=== PATIENT | male | born 1970 | race Caucasian/White ===

== ENCOUNTER 2017-10-17 01:48 | Emergency (ER) | payer MEDICAID ==
[2017-10-17 01:55] VITALS: BP 139/90
[2017-10-17] MEDS ORDERED: ACYCLOVIR 200 MG CAPSULE PO STA (02:02)
--- NOTE | 2017-10-17 02:08 | ED Physician Documentation ---
PD HPI MALE - Stated complaint Stated Complaint: MALE - Chief complaint Chief Complaint: Wound - History obtained from History obtained from: Patient - History of Present Illness Timing - onset: How many days ago (2) Timing - details: Gradual onset, Still present Associated symptoms: Genital sore / lesion. No: Testiclar pain, Scrotal swelling PD HPI MALE CONTRIB FACTORS: Sexually active Similar symptoms before: Has not had sx before Recently seen: Not recently seen - Additional information Additional information: Patient is a 47 year old male with no significant past medical history who is presenting to the emergency department for penile lesion. patient states that he noticed spots on the shaft of his penis and then whitish discharge and irritation near the glans. Review of Systems Constitutional: denies: Fever, Chills Eyes: reports: Reviewed and negative Ears: reports: Reviewed and negative Nose: reports: Reviewed and negative Throat: reports: Reviewed and negative Cardiac: reports: Reviewed and negative Respiratory: reports: Reviewed and negative : denies: Dysuria, Frequency, Hesitancy, Discharge Skin: reports: Rash, Lesions Musculoskeletal: reports: Reviewed and negative Neurologic: reports: Reviewed and negative Psychiatric: reports: Reviewed and negative Endocrine: denies: Swollen lymph nodes Immunocompromised: denies: Immunocompromised PD PAST MEDICAL HISTORY - Past Medical History Cardiovascular: Hypertension Respiratory: None Neuro: None Endocrine/Autoimmune: None GI: None : None HEENT: None Psych: None Musculoskeletal: None Derm: None - Past Surgical History Past Surgical History: Yes - Present Medications Home Medications: Ambulatory Orders Medication Instructions Recorded Confirmed Acyclovir 400 mg PO TID #21 tablet 10/17/17 Clotrimazole 1 applic TP BID #45 gm 10/17/17 - Allergies Allergies/Adverse Reactions: Allergies Allergy/AdvReac Type Severity Reaction Status Date / Time No Known Drug Allergies Allergy Verified 10/17/17 01:58 - Social History Does the pt smoke?: Yes Smoking Status: Current every day smoker Does the pt drink ETOH?: Yes Does the pt have substance abuse?: No - Immunizations Immunizations are current?: No Immunizations: TDAP >10years/unknown - POLST Patient has POLST: No PD ED PE NORMAL - Vitals Vital signs reviewed: Yes - General General: Alert and oriented X 3, No acute distress - HEENT HEENT: Atraumatic, PERRL - Cardiac Cardiac: RRR - Respiratory Respiratory: No respiratory distress - Abdomen Abdomen: Soft, Non distended - Extremities Extremities: No deformity, Normal ROM s pain - Neuro Neuro: Alert and oriented X 3, Normal speech Eye Opening: Spontaneous Motor: Obeys Commands Verbal: Oriented GCS Score: 15 - Psych Psych: Normal mood PD ED PE EXPANDED - Male Male : Skin lesions, Cultures sent, Other (discharge under the foreskin and plaque like lesions on the shaft). No: Circumcised, Testicular Mass, Tenderness Results - Vitals Vitals: Vital Signs - 24 hr 10/17/17 01:52 Temperature 36.7 C Heart Rate 108 H Respiratory 16 Rate Blood Pressure 139/90 H O2 Saturation 100 Oxygen O2 Source Room air PD MEDICAL DECISION MAKING - ED course Complexity details: reviewed old records, reviewed results, re-evaluated patient , considered differential, d/w patient ED course: patient was seen and examined at bedside. patient did have balantitis but had other plaque like lesions that could be balantitis circinata or possible herpes. Patient was treated empirically with acyclovir and was tested for multiple STDs. Patient required no further inpatient work up and was stable for discharge with outpatient follow up. Departure - Departure Disposition: Home, Self Care Clinical Impression: Balanitis Condition: Good Instructions: Clotrimazole skin cream lotion or solution Follow-Up: primary,care provider [Other] - Within 3 Days Prescriptions: Acyclovir 400 mg PO TID #21 tablet Clotrimazole 1 applic TP BID #45 gm Comments: Your symptoms are likely secondary to a fungal infection but due to the chance of herpes you will be empirically started on acyclovir. Your results should come back in 3 days or so. You should call for your results or come back with an ID. You should wash your penis, pulling back your foreskin applying the lotion to the top of your shaft underneath the glans. You should follow up wiht your doctor if your symptoms don't improve. You may return to the emergency department at any time for new, worsening or uncontrollable symptoms.
[2017-10-19 11:56] LABS: HSV 2 IGG TYPE SPECIFIC AB <0.90 index
== END 2017-10-17 03:07 | disposition home or self-care (01) ==
LOC: ED 01:48
DX: N48.1 Balanitis (principal); I10 Essential (primary) hypertension; F17.200 Nicotine dependence, unspecified, uncomplicated
CPT/HCPCS: 36415; 86695; 86696; 87491; 87591; 99283; A9270

== ENCOUNTER 2021-06-18 17:01 | Inpatient (IN) | payer SELFPAY ==
--- NOTE | 2021-06-18 18:14 | ED Physician Documentation ---
History of Present Illness - Stated complaint Stated Complaint: LT LEG ISSUE - Chief complaint Chief Complaint: Ext Problem - History obtained from History obtained from: Patient - History of Present Illness Timing: Today Pain level max: 0 Pain level now: 0 - Additonal information Additional information: 51-year-old male presents to the emergency department left lower extremity swelling ongoing for the past several weeks. He has been seen at [facility] several times. Treated for presumptive cellulitis. He states that he did improve with IV antibiotics but the oral antibiotics do not seem to be helping. He states increasing swelling recently. Did have pain behind his left knee a few weeks ago. He states that [facility] also drained fluid from the knee. He does not know the results of this. No fevers. No chills. Works construction. No recent travel. No history of blood clots. Review of Systems Ten Systems: 10 systems reviewed and negative Constitutional: denies: Fever, Chills Ears: denies: Ear pain Nose: denies: Rhinorrhea / runny nose, Congestion Cardiac: denies: Chest pain / pressure Respiratory: denies: Cough GI: denies: Abdominal Pain, Nausea, Vomiting, Diarrhea Skin: denies: Rash Musculoskeletal: denies: Neck pain, Back pain Neurologic: denies: Headache PD PAST MEDICAL HISTORY - Past Medical History Past Medical History: Yes Cardiovascular: Hypertension Respiratory: None Endocrine/Autoimmune: None GI: None : None HEENT: None Psych: None Musculoskeletal: None Derm: None - Past Surgical History Past Surgical History: Yes Ortho: Carpal Tunnel surgery - Present Medications Home Medications: Ambulatory Orders Medication Instructions Recorded Confirmed Amoxicillin 875 mg BID 06/18/21 06/18/21 - Allergies Allergies/Adverse Reactions: Allergies Allergy/AdvReac Type Severity Reaction Status Date / Time No Known Drug Allergies Allergy Verified 06/18/21 17:28 - Social History Does the pt smoke?: Yes Smoking Status: Current every day smoker Does the pt drink ETOH?: Yes Does the pt have substance abuse?: No - Immunizations Immunizations are current?: No Immunizations: TDAP >10years/unknown - POLST Patient has POLST: No PD ED PE NORMAL - Vitals Vital signs reviewed: Yes - General General: Alert and oriented X 3, No acute distress, Well developed/nourished - HEENT HEENT: Moist mucous membranes - Neck Neck: Supple, no meningeal sign - Cardiac Cardiac: RRR, Strong equal pulses - Respiratory Respiratory: No respiratory distress, Clear bilaterally - Abdomen Abdomen: Soft, Non tender, Non distended - Back Back: No spinal TTP - Derm Derm: Warm and dry - Extremities Extremities: Other (Significant swelling to the entire left lower extremity with erythema from the toes to above the knee. Full range of motion of the knee without pain. No drainage. No abscess. Neurovascularly intact.) - Neuro Neuro: Alert and oriented X 3 - Psych Psych: Normal mood, Normal affect Results - Vitals Vitals: Vital Signs - 24 hr 06/18/21 17:03 Temperature 36.4 C L Heart Rate 113 H Respiratory 18 Rate Blood Pressure 158/92 H O2 Saturation 100 Oxygen O2 Source Room air - Labs Labs: Laboratory Tests 06/18/21 06/18/21 06/18/21 18:18 18:18 18:18 WBC 16.1 H RBC 4.34 L Hgb 12.7 L Hct 37.6 L MCV 86.6 MCH 29.3 MCHC 33.8 RDW 11.9 L Plt Count 442 MPV 8.2 Neut # (Auto) 13.1 H Lymph # (Auto) 2.0 [place] # (Auto) 0.7 Eos # (Auto) 0.0 Baso # (Auto) 0.0 Absolute Nucleated RBC 0.00 Nucleated RBC % 0.0 ESR 14 Sodium 136 Potassium 4.1 Chloride 98 L Carbon Dioxide 29 Anion Gap 9.0 BUN 14 Creatinine 0.8 Estimated GFR (MDRD) 102 Glucose 136 H Lactic Acid Calcium 9.1 Total Bilirubin 0.6 AST 17 ALT 21 Alkaline Phosphatase 83 C-Reactive Protein 1.2 H Total Protein 7.7 Albumin 3.3 Globulin 4.4 H Albumin/Globulin Ratio 0.8 L 06/18/21 18:18 WBC RBC Hgb Hct MCV MCH MCHC RDW Plt Count MPV Neut # (Auto) Lymph # (Auto) [place] # (Auto) Eos # (Auto) Baso # (Auto) Absolute Nucleated RBC Nucleated RBC % ESR Sodium Potassium Chloride Carbon Dioxide Anion Gap BUN Creatinine Estimated GFR (MDRD) Glucose Lactic Acid 1.5 Calcium Total Bilirubin AST ALT Alkaline Phosphatase C-Reactive Protein Total Protein Albumin Globulin Albumin/Globulin Ratio - Rads (name of study) Duplex ultrasound left lower extremity Radiology: Prelim report reviewed, EMP read contemporaneously, See rad report (No DVT) PD MEDICAL DECISION MAKING - ED course Complexity details: reviewed old records, reviewed results, re-evaluated patient, considered differential, d/w patient, d/w fundraising consultant ED course: Patient is a 51-year-old male with significant swelling and edema to the left l ower extremity. The left lower extremity is at least double the size of the right lower extremity with Erythema that extends from the toes to above the knee. No DVT on ultrasound. Records from [facility] were able to be obtained. He had an ultrasound there which was negative as well. He was thought to have prepatellar bursitis at that time and the prepatellar bursa was tapped and grew out strep. Orthopedics also evaluated the patient did not feel that he had a septic joint. The patient was septic at that time, leukocytosis with fever. Was admitted to the hospital for IV antibiotics. He was discharged home on amoxicillin for the cellulitis and has been on this for over a week, he is continuing to worsen and now has a worsening leukocytosis as well as significant symptoms. He has failed outpatient treatment. Patient will need to be admitted for further IV antibiotics and further care. Discussed the case with Dr. Fox, hospitalist who accepts This document was made in part using voice recognition software. While efforts are made to proofread this document, sound alike and grammatical errors may occur. Departure - Departure Disposition: [facility] DC/[place] Clinical Impression: Cellulitis Qualifiers: Site of cellulitis: extremity Site of cellulitis of extremity: lower extremity Laterality: left Qualified Code(s): L03.116 - Cellulitis of left lower limb Condition: Stable Discharge Date/Time: 06/18/21 20:14
[2021-06-18 18:38] LABS: BASOPHILS % (AUTO) 0.2 %; HCT - HEMATOCRIT 37.6 % (42.0-52.0); HGB - HEMOGLOBIN 12.7 g/dL (14.0-18.0); LYMPHOCYTES % (AUTO) 12.2 %; MEAN CORPUSCULAR HEMOGLOBIN 29.3 pg (27.0-31.0); MEAN CORPUSCULAR HGB CONC 33.8 g/dL (32.0-36.0); MEAN CORPUSCULAR VOLUME 86.6 fL (80.0-94.0); MEAN PLATELET VOLUME 8.2 fL (7.4-11.4); MONOCYTES # (AUTO) 0.7 10^3/uL (0.0-1.0); MONOCYTES % (AUTO) 4.2 %; NEUTROPHILS # (AUTO) 13.1 10^3/uL (1.5-6.6); NEUTROPHILS % (AUTO) 81.4 %; PLT - PLATELET COUNT 442 10^3/uL (130-450); RED BLOOD COUNT 4.34 10^6/uL (4.70-6.10); RED CELL DISTRIBUTION WIDTH 11.9 % (12.0-15.0); WHITE BLOOD COUNT 16.1 x10^3/uL (4.8-10.8)
[2021-06-18 18:53] LABS: ALBUMIN 3.3 g/dL (3.2-5.5); ALBUMIN/GLOBULIN RATIO 0.8 (1.0-2.2); BILIRUBIN,TOTAL 0.6 mg/dL (0.2-1.0); CALCIUM 9.1 mg/dL (8.5-10.3); CREATININE 0.8 mg/dL (0.6-1.2); CRP - C-REACTIVE PROTEIN 1.2 mg/dL (0-1.0); POTASSIUM 4.1 mmol/L (3.5-5.0); TOTAL PROTEIN 7.7 g/dL (6.7-8.2)
[2021-06-18] MEDS ORDERED: VANCOMYCIN INJ 2 GM in SODIUM CHLORIDE 0.9% 500 ML IV STA (19:04)
[2021-06-18] MEDS ORDERED: AMPICILLIN/SULBACTAM 3 GM in SODIUM CHLORIDE 0.9% MINIBAG 100 ML IV STA (19:04)
[2021-06-18] MEDS ORDERED: ONDANSETRON 4 MG/2 ML VIAL IVP PRN (19:33)
[2021-06-18] MEDS ORDERED: ACETAMINOPHEN 325 MG TABLET PO PRN (19:33)
[2021-06-18] MEDS ORDERED: ONDANSETRON ODT 4 MG TABLET TL PRN (19:33)
[2021-06-18] MEDS ORDERED: VANCOMYCIN 1 GM VIAL ONE (19:35)
--- NOTE | 2021-06-18 19:56 | Ultrasound Report ---
PROCEDURE: Duplex Ext Veins Left INDICATIONS: LLE swelling TECHNIQUE: Real-time imaging, as well as color and pulse Doppler interrogation, were performed of the lower extr emity deep veins from the inguinal ligament to the popliteal fossa. COMPARISON: None. FINDINGS: Technically difficult study secondary to inability to compress the veins due to overlying tissue condition and patient body habitus. The deep veins are normally compressible, and free of intraluminal thrombus. Color and pulse Doppler demonstrate normal phasic intraluminal flow. There is normal augmentation response to distal compre ssion maneuver. Moderate to significant subcutaneous edema in the distal thigh and calf. There is a thin flat simple fluid collection anterior to the knee joint measuring 5.0 x 2.8 x 0.6 cm. No popliteal fossa collecti on. IMPRESSION: 1. Suboptimal exam secondary to overlying subcutaneous edema, moderate to significant in degree from the distal thigh through the catheter. 2. No secondary signs to suggest DVT. 3. There is a thin flat fluid collection in the prepatellar bursa. 4. Preliminary results given to the ordering provider by the bottom sprayer. Reviewed by: Kaylie Ford MD on 06/18/2021 7:55 PM PDT Approved by: Kaylie Ford MD on 06/18/2021 7:55 PM PDT Station ID: [id number]
--- NOTE | 2021-06-18 20:05 | HISTORY & PHYSICAL EXAMINATION ---
Chief Complaint - Chief Complaint Chief Complaint: Left leg swelling and redness History of Present Illness - Admitted From Admitted From:: Home - History Obtained From Records Reviewed: Yes History obtained from: Patient, ER Physician, EMR - History of Present Illness HPI Comment/Other: This is a 51-year-old male with no significant past medical history who presents today complaining of ongoing left lower extremity edema and erythema. He states began about 1-1/2 weeks ago when he woke up with erythema and edema from his left knee down to his foot. He states the night prior to that, his leg appeared normal. He was seen at [facility] and was admitted overnight where he was given antibiotics and underwent a duplex which showed no evidence of DVT. He states that the following day his leg had significantly improved and that they performed an arthrocentesis of the left knee. Reportedly, cultures grew Streptococcus and he was discharged on amoxicillin the following day given he had significant improvement in the erythema. He states over the past 8 to 9 days since discharge, his erythema has gradually improved but is still quite present. His edema has not improved at all. He was concerned that he had not been improving and so he decided to come to the emergency department today. He states being compliant with the amoxicillin. He reports no fevers, chills, nausea, vomiting. Does not believe he had any trauma to that left lower extremity. He denies a prior history of cellulitis or a history of diabetes. He denies any animal or insect bites. He reports no numbness in the lower extremity. Here in the emergency department, he was noted to be afebrile. His labs are significant for white count of 16,000 with a left shift. His CRP was only mildly elevated at 1.2. Lactic acid was normal. He was given vancomycin and Unasyn in the emergency department. He underwent a repeat duplex which showed no evidence of DVT. Given his ongoing erythema/edema and the fact that he failed outpatient antibiotics, medicine was consulted for admission. History - Past Medical History Cardiovascular: reports: Hypertension Respiratory: reports: None Endocrine/Autoimmune: reports: None GI: reports: None : reports: None HEENT: reports: None Psych: reports: None Musculoskeletal: reports: None Derm: reports: None MRSA Hx?: No - Past Surgical History Ortho: reports: Carpal Tunnel surgery - Family & Social History Family History Comment/Other: He reports his father from cardiac complications. He believes he had a myocardial infarction followed by renal failure. Living arrangement: At home Living Situation: With spouse/s.o. Social History Notes: He smokes less than a pack a day and has been doing so for about 30 years. He reports rare alcohol use. Denies illicit drugs. He works in construction. - POLST Patient has POLST: No Meds/Allgy - Home Medications Home Medications: Ambulatory Orders Medication Instructions Recorded Confirmed Amoxicillin 875 mg BID 06/18/21 06/18/21 - Allergies Allergies/Adverse Reactions: Allergies Allergy/AdvReac Type Severity Reaction Status Date / Time No Known Drug Allergies Allergy Verified 06/18/21 17:28 Review of Systems - Constitutional Constitutional: denies: Fatigue, Fever, Chills, Malaise - Eyes Eyes: denies: Blurred vision, Vision loss - Ears, Nose & Throat Ears, Nose & Throat: denies: Nasal discharge, Nasal congestion, Sore throat - Cardiovascular Cariovascular: reports: Edema. denies: Chest pain, Exertional dyspnea, Decr. exercise tolerance - Respiratory Respiratory: denies: Cough, SOB at rest, SOB with exertion - Gastrointestinal Gastrointestinal: denies: Abdominal pain, Diarrhea, Nausea, Vomiting - Genitourinary Genitourinary: denies: Dysuria, Frequency, Urgency, Hematuria - Musculoskeletal Musculoskeletal: reports: Joint swelling. denies: Stiffness, Limited range of motion - Integumentary Integumentary: reports: Pigment changes - Neurological Neurological: denies: General weakness, Focal weakness, Dizziness, Numbness - Hematologic/Lymphatic Hematologic/Lymphatic: denies: Bruising, Blood clots, Bleeding tendencies - All Other Systems All Other Systems: reports: Reviewed and negative Prior Level of Functionality: He is independent with his ADL's. Exam - Vital Signs Reviewed Vital Signs: Yes Vital Signs: Vital Signs x48h Temp Pulse Resp BP Pulse Ox 06/18/21 19:48 36.9 C 98 20 139/87 H 06/18/21 17:03 36.4 C L 113 H 18 158/92 H 100 - Physical Exam General Appearance: positive: No acute distress, Alert, Mild distress Eyes Bilateral: positive: Conjunctivae nml ENT: positive: ENT inspection nml Neck: positive: Nml inspection Respiratory: positive: No respiratory distress. negative: Wheezes, Rales Cardiovascular: positive: Regular rate & rhythm, No murmur. negative: Tachycardia Abdomen: positive: Non-tender, No distention. negative: Tenderness, Guarding, Rebound Skin: positive: Warm (His left lower extremity is erythematous from the knee down to the dorsum of his left foot. There is also +2 pitting edema to the left lower extremity. There is a 2 cm blister over the anterior aspect of the left lower extremity. The skin is dry but no obvious abrasion or wound.), Dry, Other Extremities: positive: Pedal edema (+2 pitting edema in the left lower extremity.) Neurologic/Psychiatric: positive: Motor nml, Sensation nml. negative: Disoriented to person, Disoriented to place, Disoriented to time, Sensory loss Conclusion/Plan - Problem List (1) Cellulitis of left lower extremity Conclusion/Plan: This is a gentleman who presents now with persistent erythema and edema after failing treatment of the cellulitis with oral amoxicillin. He had previously been admitted at [facility] and treated with IV antibiotics. Cultures from the arthrocentesis of the prepatellar bursa grew Streptococcus. Duplex shows no evidence of DVT but did reveal a fluid collection anterior to the left knee joint. He will be admitted for IV antibiotics and he will place him on cefazolin IV empirically. If there is no improvement over next 24 hours then we will look to broaden his antibiotic therapy to vancomycin. Follow-up cultures. Trend CBC. Will likely discuss with orthopedic surgery regarding the need for a repeat arthrocentesis. - Lab Results Lab results reviewed: Yes Fish Bones: 06/18/21 18:18 06/18/21 18:18 Core Measures - Anticipated LOS I expect patient to be DC'd or transferred within 96 hours.: Yes - Issues Hospital Issues and Management Plan: 51-year-old male presents with left lower extremity cellulitis after failing outpatient treatment with amoxicillin. He will be admitted for IV antibiotics and further management. - DVT/VTE - Prophylaxis VTE/DVT Device ordered at admit?: No Not Ordered - Medical Reason: Contraindicated VTE/DVT Prophylaxis med ordered at admit?: Yes
[2021-06-18 21:18] LABS: CORONAVIRUS 229E-RESP PCR NOT DETECTED; CORONAVIRUS HKU1-RESP PCR NOT DETECTED; CORONAVIRUS NL63-RESP PCR NOT DETECTED; CORONAVIRUS OC43-RESP PCR NOT DETECTED; HUMAN METAPNEUMOVIRUS NOT DETECTED; INFLUENZA A- RESP PCR PANEL NOT DETECTED; INFLUENZA B - RESP PCR PANEL NOT DETECTED; PARAINFLUENZA VIRUS 1 NOT DETECTED; PARAINFLUENZA VIRUS 2 NOT DETECTED; PARAINFLUENZA VIRUS 3 NOT DETECTED; RHINOVIRUS/ENTEROVIRUS NOT DETECTED; SARS-CoV-2 -RESP PCR PANEL NOT DETECTED
[2021-06-18 21:19] LABS: B. PARAPERTUSSIS- RESP PCR PAN NOT DETECTED; B. PERTUSSIS- RESP PCR PANEL NOT DETECTED; C. PNEUMONIAE- RESP PCR PANEL NOT DETECTED; M. PNEUMONIAE- RESP PCR PANEL NOT DETECTED; PARAINFLUENZA VIRUS 4 NOT DETECTED; RSV- RESP PCR PANEL NOT DETECTED
[2021-06-18] MEDS: ceFAZolin 2 GM in SODIUM CHLORIDE 0.9% MINIBAG 100 ML IV SCH (22:01)
[2021-06-18] MEDS: SODIUM CHLORIDE FLUSH 0.9% 10 ML SYRINGE IVP SCH (22:01)
[2021-06-19 05:49] LABS: BASOPHILS # (AUTO) 0.1 10^3/uL (0.0-0.1); BASOPHILS % (AUTO) 0.4 %; EOSINOPHILS # (AUTO) 0.1 10^3/uL (0.0-0.7); EOSINOPHILS % (AUTO) 0.6 %; HCT - HEMATOCRIT 36.6 % (42.0-52.0); HGB - HEMOGLOBIN 11.8 g/dL (14.0-18.0); LYMPHOCYTES # (AUTO) 3.4 10^3/uL (1.5-3.5); LYMPHOCYTES % (AUTO) 24.2 %; MEAN CORPUSCULAR HEMOGLOBIN 28.4 pg (27.0-31.0); MEAN CORPUSCULAR HGB CONC 32.2 g/dL (32.0-36.0); MEAN CORPUSCULAR VOLUME 88.2 fL (80.0-94.0); MEAN PLATELET VOLUME 8.7 fL (7.4-11.4); MONOCYTES # (AUTO) 0.8 10^3/uL (0.0-1.0); MONOCYTES % (AUTO) 5.8 %; NEUTROPHILS # (AUTO) 9.5 10^3/uL (1.5-6.6); NEUTROPHILS % (AUTO) 67.4 %; PLT - PLATELET COUNT 383 10^3/uL (130-450); RED BLOOD COUNT 4.15 10^6/uL (4.70-6.10); RED CELL DISTRIBUTION WIDTH 11.9 % (12.0-15.0); WHITE BLOOD COUNT 14.1 x10^3/uL (4.8-10.8)
[2021-06-19 06:09] LABS: BUN - BLOOD UREA NITROGEN 14 mg/dL (6-20); CALCIUM 8.4 mg/dL (8.5-10.3); CARBON DIOXIDE - CO2 27 mmol/L (21-32); CHLORIDE 100 mmol/L (101-111); GFR - MDRD 79 (>89); GLUCOSE 93 mg/dL (70-100); POTASSIUM 4.2 mmol/L (3.5-5.0); SODIUM 138 mmol/L (135-145)
[2021-06-19 06:21] LABS: CRP - C-REACTIVE PROTEIN < 1.0 mg/dL (0-1.0)
[2021-06-19] MEDS: ceFAZolin 2 GM in SODIUM CHLORIDE 0.9% MINIBAG 100 ML IV SCH ×3 (06:22→21:57)
[2021-06-19] MEDS: SODIUM CHLORIDE FLUSH 0.9% 10 ML SYRINGE IVP PRN ×2 (06:22→13:42)
[2021-06-19] MEDS: SODIUM CHLORIDE FLUSH 0.9% 10 ML SYRINGE IVP SCH ×3 (08:35→23:45)
[2021-06-19] MEDS ORDERED: ENOXAPARIN 40 MG/0.4 ML SYRINGE SUBQ SCH (09:00)
--- NOTE | 2021-06-19 11:32 | PHARMACY PROGRESS NOTE ---
- Best Possible Medication History Admit Date and Time: 06/18/211932 Processed by: Pharmacy Medication History completed: Yes Patient Interview: Pt interview ONLY source As the person ultimately responsible for medication therapy, providers are able to order a medication from an existing home medication list in [facility] via the "Reconcile Routine" prior to Confirmation of that medication by academic support center director. Such practice is discouraged except when the physician, in their clinical judgment, deems that a medical need exists for a medication without regard to previous use.
--- NOTE | 2021-06-19 11:41 | PROVIDER PROGRESS NOTE ---
Assessment/Plan - Problem List (1) Cellulitis of left lower extremity Assessment/Plan: 06/19, pt report he had good improved since from last night, swelling and erythema are reduced, and he feel better. WBC is trended to 14 from 16 at the admission. pt has no fever, lactic acid at normal arrange. CRP <1. blood culture is pending. There is No swelling at left knee with normal skin color now. Duplex shows no evidence of DVT but did reveal a thin flat fluid collection anterior to the left knee joint. pt has no pain complaint. We will continue intravenous Ancef, Encourage patient rise of his left leg and ambulation. - Current Meds Current Meds: Current Medications Generic Name Dose Route Start Last Admin Trade Name Freq PRN Reason Stop Dose Admin Acetaminophen 650 mg 06/18/21 19:33 06/18/21 22:10 Acetaminophen 325 Mg Tablet PO 650 mg Q4HR PRN Administration Pain 1 to 4 Enoxaparin Sodium 40 mg 06/19/21 09:00 06/19/21 08:33 Enoxaparin 40 Mg/0.4 Ml Syringe SUBQ 40 mg DAILY RALPH Administration Cefazolin Sodium 2 gm/ Sodium 100 mls @ 200 mls/hr 06/18/21 22:00 06/19/21 06:55 Chloride IV Infused Q8HR RALPH Infusion Sodium Chloride 10 ml 06/18/21 19:33 06/19/21 06:22 Sodium Chloride Flush 0.9% 10 Ml Syringe IVP 10 ml PRN PRN Administration NEEDED PER PROVIDER ORDERS Sodium Chloride 10 ml 06/19/21 01:00 06/19/21 08:35 Sodium Chloride Flush 0.9% 10 Ml Syringe IVP 10 ml 0100,0900,1700 RALPH Administration - Lab Result Fish Bone Diagrams: 06/19/21 05:13 06/19/21 05:13 Subjective - Subjective Patient Reports: Feeling Better Objective Vital Signs: Vital Signs - 24 hr 06/18/21 06/18/21 06/18/21 17:03 19:48 21:00 Temperature 36.4 C L 36.9 C 36.9 C Heart Rate 113 H 98 Heart Rate [ 89 Radial] Respiratory 18 20 18 Rate Blood Pressure 158/92 H 139/87 H Blood Pressure [Left Brachial artery] Blood Pressure 141/92 H [Right Brachial artery] O2 Saturation 100 100 1006/19/21 06/19/21 23:50 05:00 07:30 Temperature 37 C 36.5 C 36.6 C Heart Rate Heart Rate [ 96 85 78 Radial] Respiratory 20 19 16 Rate Blood Pressure Blood Pressure 139/89 H 131/84 H 132/91 H [Left Brachial artery] Blood Pressure [Right Brachial artery] O2 Saturation 97 96 96 Oxygen O2 Source Room air I&O (Last 24 Hrs): Intake and Output Totals x24h 06/17/21 06/18/21 06/19/21 23:59 23:59 23:59 Intake Total 950 680 Balance 950 680 General: Alert, Oriented x3, Cooperative, No acute distress HEENT: Atraumatic Neck: Supple Lymphatic: no adenopathy Neuro: Alert, Non Focal, Oriented Times 3 Cardiovascular: Regular rate, Normal S1, Normal S2 Respiratory: Chest non-tender, No respiratory distress Abdomen: Normal bowel sounds, Soft Extremities: Other (swelling and erythema at left lower extremity and at left ankle. There is no swelling or skin erythema at left knee. pt report he feel better and no pain complaint) - Results Results: Laboratory Results WBC 14.1 x10^3/uL (4.8-10.8) H 06/19/21 05:13 RBC 4.15 10^6/uL (4.70-6.10) L 06/19/21 05:13 Hgb 11.8 g/dL (14.0-18.0) L 06/19/21 05:13 Hct 36.6 % (42.0-52.0) L 06/19/21 05:13 MCV 88.2 fL (80.0-94.0) 06/19/21 05:13 MCH 28.4 pg (27.0-31.0) 06/19/21 05:13 MCHC 32.2 g/dL (32.0-36.0) 06/19/21 05:13 RDW 11.9 % (12.0-15.0) L 06/19/21 05:13 Plt Count 383 10^3/uL (130-450) 06/19/21 05:13 MPV 8.7 fL (7.4-11.4) 06/19/21 05:13 Neut # (Auto) 9.5 10^3/uL (1.5-6.6) H 06/19/21 05:13 Lymph # (Auto) 3.4 10^3/uL (1.5-3.5) 06/19/21 05:13 [place] # (Auto) 0.8 10^3/uL (0.0-1.0) 06/19/21 05:13 Eos # (Auto) 0.1 10^3/uL (0.0-0.7) 06/19/21 05:13 Baso # (Auto) 0.1 10^3/uL (0.0-0.1) 06/19/21 05:13 Absolute Nucleated RBC 0.00 x10^3/uL 06/19/21 05:13 Nucleated RBC % 0.0 /100WBC 06/19/21 05:13 ESR 14 mm/Hr (0-20) 06/18/21 18:18 Sodium 138 mmol/L (135-145) 06/19/21 05:13 Potassium 4.2 mmol/L (3.5-5.0) 06/19/21 05:13 Chloride 100 mmol/L (101-111) L 06/19/21 05:13 Carbon Dioxide 27 mmol/L (21-32) 06/19/21 05:13 Anion Gap 11.0 (6-13) 06/19/21 05:13 BUN 14 mg/dL (6-20) 06/19/21 05:13 Creatinine 1.0 mg/dL (0.6-1.2) 06/19/21 05:13 Estimated GFR (MDRD) 79 (>89) L 06/19/21 05:13 Glucose 93 mg/dL (70-100) 06/19/21 05:13 Lactic Acid 1.5 mmol/L (0.5-2.2) 06/18/21 18:18 Calcium 8.4 mg/dL (8.5-10.3) L 06/19/21 05:13 Total Bilirubin 0.6 mg/dL (0.2-1.0) 06/18/21 18:18 AST 17 IU/L (10-42) 06/18/21 18:18 ALT 21 IU/L (10-60) 06/18/21 18:18 Alkaline Phosphatase 83 IU/L (42-121) 06/18/21 18:18 C-Reactive Protein < 1.0 mg/dL (0-1.0) 06/19/21 05:13 Total Protein 7.7 g/dL (6.7-8.2) 06/18/21 18:18 Albumin 3.3 g/dL (3.2-5.5) 06/18/21 18:18 Globulin 4.4 g/dL (2.1-4.2) H 06/18/21 18:18 Albumin/Globulin Ratio 0.8 (1.0-2.2) L 06/18/21 18:18 Nasal Adenovirus (PCR) NOT DETECTED 06/18/21 19:18 Nasal B. parapertussis DNA (PCR) NOT DETECTED 06/18/21 19:18 Nasal Coronavir 229E PCR NOT DETECTED 06/18/21 19:18 Nasal Coronavir HKU1 PCR NOT DETECTED 06/18/21 19:18 Nasal Coronavir NL63 PCR NOT DETECTED 06/18/21 19:18 Nasal Coronavir OC43 PCR NOT DETECTED 06/18/21 19:18 Nasal Enterovir/Rhinovir PCR NOT DETECTED 06/18/21 19:18 Nasal Influenza B PCR NOT DETECTED 06/18/21 19:18 Nasal Influenza A PCR NOT DETECTED 06/18/21 19:18 Nasal Parainfluen 1 PCR NOT DETECTED 06/18/21 19:18 Nasal Parainfluen 2 PCR NOT DETECTED 06/18/21 19:18 Nasal Parainfluen 3 PCR NOT DETECTED 06/18/21 19:18 Nasal Parainfluen 4 PCR NOT DETECTED 06/18/21 19:18 Nasal RSV (PCR) NOT DETECTED 06/18/21 19:18 Nasal B.pertussis DNA PCR NOT DETECTED 06/18/21 19:18 Nasal C.pneumoniae (PCR) NOT DETECTED 06/18/21 19:18 Travis Human Metapneumo PCR NOT DETECTED 06/18/21 19:18 Nasal M.pneumoniae (PCR) NOT DETECTED 06/18/21 19:18 Nasal SARS-CoV-2 (PCR) NOT DETECTED 06/18/21 19:18 ABX Reporting Has patient been on IV antibiotics over the past 48 hours?: Yes Current Medications - Current Medications Current Medications: Active Medications Acetaminophen (Acetaminophen 325 Mg Tablet) 650 mg PO Q4HR PRN PRN Reason: Pain 1 to 4 Last Admin: 06/18/21 22:10 Dose: 650 mg Documented by: Enoxaparin Sodium (Enoxaparin 40 Mg/0.4 Ml Syringe) 40 mg SUBQ DAILY [facility] Last Admin: 06/19/21 08:33 Dose: 40 mg Documented by: Cefazolin Sodium 2 gm/ Sodium (Chloride) 100 mls @ 200 mls/hr IV Q8HR [facility] Last Infusion: 06/19/21 06:55 Dose: Infused Documented by: Ondansetron HCl (Ondansetron Odt 4 Mg Tablet) 4 mg TL Q6HR PRN PRN Reason: Nausea / Vomiting Ondansetron HCl (Ondansetron 4 Mg/2 Ml Vial) 4 mg IVP Q6HR PRN PRN Reason: Nausea / Vomiting Sodium Chloride (Sodium Chloride Flush 0.9% 10 Ml Syringe) 10 ml IVP PRN PRN PRN Reason: NEEDED PER PROVIDER ORDERS Last Admin: 06/19/21 06:22 Dose: 10 ml Documented by: Sodium Chloride (Sodium Chloride Flush 0.9% 10 Ml Syringe) 10 ml IVP 0100,0900,1700 [facility] Last Admin: 06/19/21 08:35 Dose: 10 ml Documented by: No Known Home Medications 06/19/21
[2021-06-19] MEDS ORDERED: SODIUM CHLORIDE 0.9% MINIBAG 100 ML IV ONE (13:38)
[2021-06-19 14:43] LABS: ESTIMATED AVERAGE GLUCOSE 123 mg/dL (70-100); HEMOGLOBIN A1c% 5.9 % (4.27-6.07)
[2021-06-20] MEDS: ceFAZolin 2 GM in SODIUM CHLORIDE 0.9% MINIBAG 100 ML IV SCH (05:25)
[2021-06-20] MEDS: SODIUM CHLORIDE FLUSH 0.9% 10 ML SYRINGE IVP PRN (05:26)
[2021-06-20 06:24] LABS: BASOPHILS # (AUTO) 0.1 10^3/uL (0.0-0.1); BASOPHILS % (AUTO) 0.7 %; EOSINOPHILS # (AUTO) 0.2 10^3/uL (0.0-0.7); EOSINOPHILS % (AUTO) 2.1 %; HCT - HEMATOCRIT 39.7 % (42.0-52.0); HGB - HEMOGLOBIN 12.9 g/dL (14.0-18.0); LYMPHOCYTES # (AUTO) 2.7 10^3/uL (1.5-3.5); LYMPHOCYTES % (AUTO) 26.3 %; MEAN CORPUSCULAR HEMOGLOBIN 28.3 pg (27.0-31.0); MEAN CORPUSCULAR HGB CONC 32.5 g/dL (32.0-36.0); MEAN CORPUSCULAR VOLUME 87.1 fL (80.0-94.0); MEAN PLATELET VOLUME 8.1 fL (7.4-11.4); MONOCYTES # (AUTO) 0.7 10^3/uL (0.0-1.0); MONOCYTES % (AUTO) 6.3 %; NEUTROPHILS # (AUTO) 6.5 10^3/uL (1.5-6.6); NEUTROPHILS % (AUTO) 62.8 %; PLT - PLATELET COUNT 397 10^3/uL (130-450); RED BLOOD COUNT 4.56 10^6/uL (4.70-6.10); RED CELL DISTRIBUTION WIDTH 11.9 % (12.0-15.0); WHITE BLOOD COUNT 10.3 x10^3/uL (4.8-10.8)
[2021-06-20 06:33] LABS: CALCIUM 8.8 mg/dL (8.5-10.3); CREATININE 1.1 mg/dL (0.6-1.2); POTASSIUM 4.4 mmol/L (3.5-5.0)
--- NOTE | 2021-06-20 08:33 | Discharge Plan ---
Discharge Plan Problem Reviewed?: Yes Disposition: Home, Self Care Condition: Stable Prescriptions: cephALEXin [Keflex] 500 mg PO Q6H #20 cap Diet: Regular Activity Restrictions: Activity as Tolerated Shower Restrictions: No Driving Restrictions: No Health Concerns: You came to our emergency room because the skin of your left leg was not getting better after being treated for infection. You had already been in an outside hospital. They sent you home with pills. You have already been tried on Bactrim, doxycycline, and high-dose amoxicillin. It was not working in the redness, heat, and pain was getting much worse. In our emergency room we felt that you had a severe skin infection that was not responding and that you had failed outpatient management so we brought you in. You have done very well with Ancef IV. Your leg swelling has gone down. The redness has receded by almost 50%. You have a faint red tinge to your leg now but it is not hot and prickly like it was before. We think you are ready to go home and finish antibiotics at home. Plan of Treatment: Finish antibiotics with 5 more days of Keflex. 500 mg 4 times a day. Do not forget to take the medicine and complete the 5 days. Take an [id number] probiotic twice a day while you are on antibiotics. This will hopefully help your gut stay with the "good" bacteria that antibiotics sometimes kill off. Care Goals: To complete antibiotic therapy and have complete resolution of the skin infection. And to return to work without restrictions. Assessment: Understands care goals, and is very happy to go home. No Smoking: If you smoke, Please STOP! Call for help.
--- NOTE | 2021-06-20 08:38 | DISCHARGE SUMMARY ---
"Discharge Summary Admit Date: 06/18/21 Discharge Date: 06/20/21 Discharging Provider: Nicole Luna MD Primary Care Provider: No PCP Code Status: Attempt Resuscitation Condition at Discharge: Stable Discharge Disposition: 01 Home, Self Care - DIAGNOSES Discharge Diagnoses with Status of Each Condition: 1. Cellulitis of left lower extremity 2. Severe onychomycosis of hand and foot nails - HPI History of Present Illness: This is a 51-year-old male with no significant past medical history who presents today complaining of ongoing left lower extremity edema and erythema. He states began about 1-1/2 weeks ago when he woke up with erythema and edema from his left knee down to his foot. He states the night prior to that, his leg appeared normal. He was seen at [facility] and was admitted overnight where he was given antibiotics and underwent a duplex which showed no evidence of DVT. He states that the following day his leg had significantly improved and that they performed an arthrocentesis of the left knee. Reportedly, cultures grew Streptococcus and he was discharged on amoxicillin the following day given he had significant improvement in the erythema. He states over the past 8 to 9 days since discharge, his erythema has gradually improved but is still quite present. His edema has not improved at all. He was concerned that he had not been improving and so he decided to come to the emergency department today. He states being compliant with the amoxicillin. He reports no fevers, chills, nausea, vomiting. Does not believe he had any trauma to that left lower extremity. He denies a prior history of cellulitis or a history of diabetes. He denies any animal or insect bites. He reports no numbness in the lower extremity. Here in the emergency department, he was noted to be afebrile. His labs are significant for white count of 16,000 with a left shift. His CRP was only mildly elevated at 1.2. Lactic acid was normal. He was given vancomycin and Unasyn in the emergency department. He underwent a repeat duplex which showed no evidence of DVT. Given his ongoing erythema/edema and the fact that he failed outpatient antibiotics, medicine was consulted for admission. - Past Medical History Cardiovascular: reports: Hypertension Respiratory: reports: None Endocrine/Autoimmune: reports: None GI: reports: None : reports: None HEENT: reports: None Psych: reports: None Musculoskeletal: reports: None Derm: reports: None MRSA Hx?: No - Past Surgical History Ortho: reports: Carpal Tunnel surgery - CONSULTS | PROCEDURES Procedures: Venous duplex shows overlying subcutaneous edema, moderate to significant degree from the distal thigh to the calf. No DVT. Thin fluid collection in the prepatellar bursa. Blood cultures without growth after 24 hours - HOSPITAL COURSE Hospital Course: When he was admitted his white cell count was 16.1. After 2 days of Ancef his white cell count was now 10.3. Sedimentation rate was 14. C-reactive protein started 1.2 and was less than 1 by the time of discharge. He was ambulatory in the room. Eating his meals. The edema and redness had resolved to the point that skin was now quite wrinkly, shrunken. Still had trace edema over the top of his foot, malleolar I. The dense heat and redness had resolved substantially till it was just a faint discoloration. Much of it was centered over the anterior morales area was all of it resolved to the knee and above the knee. Where the skin was marked to the extent of cellulitis at the beginning was 1 hand with above the knee. That was all gone. At discharge temperature is 36.4. Pulse is 67. Blood pressure 123/64. Respirations 16. 100% on room air. He is a 6 foot 4 inch white male who is 112 kg. Poor dentition, low hoarse voice that is chronic for him. Shotty anterior neck adenopathy. Lungs are clear. Regular rate and rhythm. Abdomen that is nontender, nondistended, normal bowel sounds. Severe onychomycosis of 3 of 5 nails on the left hand. Onychomycosis of all his toenails. The cellulitis that he came in with has shrunk down to at least 75% of what it was. With a normal white cell count, normal C-reactive protein the patient will be transition to p.o. Keflex 500 4 times daily for 5 more days. I would ask him to establish himself with a primary care provider for continuity of care. Greater than 30 minutes was spent coordinating discharge. - ALLERGIES Allergies/Adverse Reactions: Allergies Allergy/AdvReac Type Severity Reaction Status Date / Time No Known Drug Allergies Allergy Verified 06/18/21 17:28 - MEDICATIONS Home Medications: Ambulatory Orders Medication Instructions Recorded Confirmed cephALEXin [Keflex] 500 mg PO Q6H #20 cap 06/20/21 - LABS Result Diagrams: 06/20/21 05:59 06/20/21 05:59"
[2021-06-20 08:39] VITALS: BP 127/85
== END 2021-06-20 10:05 | disposition home or self-care (01) | DRG 603 ==
LOC: ED 17:01 → MS2 19:33
PROVIDERS: ADMIT Internal Medicine; ATTEND Specialist
DX: L03.116 Cellulitis of left lower limb (principal); B35.1 Tinea unguium; F17.210 Nicotine dependence, cigarettes, uncomplicated; Z20.822 Contact with and (suspected) exposure to COVID-19
CPT/HCPCS: 0202U; 36415; 80048; 80053; 83036; 83605; 85025; 85651; 86140; 87040; 93971; 96365; 99284; 99285; A9270; J1650; J3370

== ENCOUNTER 2023-02-07 08:16 | Outpatient (CLI) | payer MEDICAID ==
[2023-02-07 12:27] LABS: BASOPHILS # (AUTO) 0.1 10^3/uL (0.0-0.1); BASOPHILS % (AUTO) 0.8 %; EOSINOPHILS # (AUTO) 0.4 10^3/uL (0.0-0.7); EOSINOPHILS % (AUTO) 5.6 %; HCT - HEMATOCRIT 43.9 % (42.0-52.0); HGB - HEMOGLOBIN 14.5 g/dL (14.0-18.0); LYMPHOCYTES # (AUTO) 2.6 10^3/uL (1.5-3.5); LYMPHOCYTES % (AUTO) 35.1 %; MEAN CORPUSCULAR VOLUME 87.8 fL (80.0-94.0); MEAN PLATELET VOLUME 9.3 fL (7.4-11.4); MONOCYTES # (AUTO) 0.7 10^3/uL (0.0-1.0); MONOCYTES % (AUTO) 8.9 %; NEUTROPHILS # (AUTO) 3.7 10^3/uL (1.5-6.6); NEUTROPHILS % (AUTO) 48.9 %; PLT - PLATELET COUNT 194 10^3/uL (130-450); RED CELL DISTRIBUTION WIDTH 12.3 % (12.0-15.0); WHITE BLOOD COUNT 7.5 x10^3/uL (4.8-10.8)
[2023-02-07 12:53] LABS: ALBUMIN 3.9 g/dL (3.2-5.5); ALBUMIN/GLOBULIN RATIO 1.1 (1.0-2.2); ALKALINE PHOSPHATASE 86 IU/L (42-121); ALT ALANINE AMINOTRANSFERASE 19 IU/L (10-60); AST ASPARTATE AMINOTRANSFERASE 21 IU/L (10-42); BILIRUBIN,TOTAL 0.5 mg/dL (0.2-1.0); BUN - BLOOD UREA NITROGEN 13 mg/dL (6-20); CALCIUM 9.2 mg/dL (8.5-10.3); CARBON DIOXIDE - CO2 30 mmol/L (21-32); CHLORIDE 103 mmol/L (101-111); CHOL/HDL RATIO 4.6 (<5.0); CHOLESTEROL 148 mg/dL; CREATININE 1.1 mg/dL (0.6-1.2); GFR - MDRD 70 (>89); GLUCOSE 109 mg/dL (70-100); HDL CHOLESTEROL 32 mg/dL; LDL CHOLESTEROL,CALCULATED 100 mg/dL; LDL/HDL RATIO 3.1 (<3.6); POTASSIUM 4.5 mmol/L (3.5-5.0); SODIUM 138 mmol/L (135-145); TOTAL PROTEIN 7.4 g/dL (6.7-8.2); TRIGLYCERIDES 78 mg/dL; VLDL CHOLESTEROL 16 mg/dL
[2023-02-07 12:54] LABS: THYROID STIMULATING HORMONE 4.21 uIU/mL (0.34-5.60)
== END 2023-02-07 08:17 | disposition home or self-care (01) ==
LOC: LAB.N 08:16
PROVIDERS: ATTEND Internal Medicine
DX: I10 Essential (primary) hypertension (principal); Z13.220 Encounter for screening for lipoid disorders; R60.0 Localized edema
CPT/HCPCS: 36415; 80053; 80061; 83036; 83721; 84443; 85025

== ENCOUNTER 2023-02-07 08:27 | Outpatient (CLI) | payer MEDICAID ==
--- NOTE | 2023-02-07 12:46 | XRAY Report ---
PROCEDURE: Knee 4 View BILAT INDICATIONS: BILATERAL KNEE PAIN GREATER THAN 3 MONTHS TECHNIQUE: 4 views of the both knee(s) were acquired. COMPARISON: MRI knee 05/24/2022. FINDINGS: Bones: Severe joint space loss most pronounced at the medial compartments bilaterally. There is tric ompartmental osteophytosis. No fractures or dislocations. No suspicious bony lesions. Soft tissues: Moderate bilateral knee joint effusion. Right knee prepatellar soft tissue swelling. N o suspicious soft tissue calcifications or masses. IMPRESSION: Severe bilateral knee DJD most pronounced at the medial and patellofemoral compartments. Moderate bilateral joint effusions. Right knee prepatellar soft tissue swelling. Reviewed by: Ron Morales MD on 02/07/2023 12:45 PM PDT Approved by: Ron Morales MD on 02/07/2023 12:45 PM PDT Station ID: [id number]
== END 2023-02-07 08:28 | disposition home or self-care (01) ==
LOC: DI.N 08:27
PROVIDERS: ATTEND Physician Assistant
DX: M17.0 Bilateral primary osteoarthritis of knee (principal); M25.462 Effusion, left knee; M25.461 Effusion, right knee; R93.6 Abnormal findings on diagnostic imaging of limbs; R93.89 Abnormal findings on diagnostic imaging of other specified body structures; I10 Essential (primary) hypertension; Z13.220 Encounter for screening for lipoid disorders; R60.0 Localized edema
CPT/HCPCS: 36415; 80053; 80061; 83036; 83721; 84443; 85025

== ENCOUNTER 2023-04-26 09:54 | Outpatient (CLI) | payer MEDICAID ==
--- NOTE | 2023-04-26 11:15 | CT Report ---
PROCEDURE: Low Dose Lung Cancer Screen INDICATIONS: TOBACCO DEPENDENCE TECHNIQUE: A CT scan of the chest was performed. Intravenous contrast media was not administered. Images were re corded and evaluated at appropriate window settings. Reformats: axial MIP of the chest, coronal and s agittal. For radiation dose reduction, the following was used: automated exposure control, adjustment of mA and/or kV according to patient size. COMPARISON: None. FINDINGS: Image quality: Excellent. Prior cancer history: Unsure. Lungs and pleura: No pleural effusions. No pneumothorax. Multiple sub-5 mm solid pulmonary nodules. For instance, the 4 mm juxtapleural nodule with smooth margins in the right upper lobe (series 3, tia ge 65), and the 2 mm solid nodule in the left lung apex (series 3, image 63). Moderate centrilobular emphysema. Mediastinum: Heart size is normal. No pericardial effusion. No large vessel abnormality. No mediastin al adenopathy by size criteria. Two vessel coronary artery calcifications. Chest wall and lower neck: Thyroid is unremarkable. No axillary or supraclavicular adenopathy by size . Bones: No aggressive osseous abnormality. Upper Abdomen: Unremarkable. IMPRESSION: Lung RAD: 2 - Benign. Recommendation: Continue annual screening in 12 Months with LDCT Non-Lung Significant Findings: Coronary Arterial Calcification - Moderate or Severe. Consider cardiol ogy referral. Reviewed by: Lance Lainez on 04/26/2023 11:14 AM PDT Approved by: Lance Lainez on 04/26/2023 11:14 AM PDT Station ID: [id number]
--- NOTE | 2023-04-26 14:53 | Ultrasound Report ---
PROCEDURE: Aorta Screening INDICATIONS: TOBACCO DEPENDENCE TECHNIQUE: Real time scanning was performed of the aorta and iliac arteries, with image documentatio n. COMPARISON: None. FINDINGS: Aorta: Proximal aortic diameter measures 2.9 x 2.7 cm. Mid-aorta measures 2.5 x 2.4 cm. Distal aor tic diameter is 2.2 x 2.0 cm. Iliac arteries: Right common iliac artery measures 1.5 cm. Left common iliac artery measures 1.5 cm . IMPRESSION: No abdominal aortic aneurysm. Consider 5 year follow-up. Recommended intervals for follow-up imaging of ectatic aortas and abdominal aortic aneurysms, per ACR consensus guidelines: 2.5-2.9 cm: 5 years 3.0-3.4 cm: 3 years 3.5-3.9 cm: 2 years 4.0-4.4 cm: 1 year 4.5-4.9 cm: 6 months + endovascular referral 5.0-5.5 cm: 3-6 months + endovascular referral Reviewed by: Ld Monsalve MD on 04/26/2023 2:51 PM PDT Approved by: Ld Monsalve MD on 04/26/2023 2:51 PM PDT Station ID: [id number]
== END 2023-04-26 09:55 | disposition home or self-care (01) ==
LOC: DI 09:54
PROVIDERS: ATTEND Physician Assistant
DX: Z12.2 Encounter for screening for malignant neoplasm of respiratory organs (principal); Z13.6 Encounter for screening for cardiovascular disorders; F17.210 Nicotine dependence, cigarettes, uncomplicated; R91.8 Other nonspecific abnormal finding of lung field; I25.10 Atherosclerotic heart disease of native coronary artery without angina pectoris

== ENCOUNTER 2023-05-08 12:46 | Outpatient (CLI) | payer MEDICAID ==
--- NOTE | 2023-05-08 17:39 | Ultrasound Report ---
PROCEDURE: Duplex Ext Veins Bilateral INDICATIONS: Bilateral swelling, edema. TECHNIQUE: Real-time imaging, as well as color and pulse Doppler interrogation, were performed of the deep veins of both legs from the inguinal ligament to the popliteal fossa. Attempted visualization of the calf veins was performed. COMPARISON: 06/18/2021. Correlation is made with the accompanying ultrasound arterial examination. FINDINGS: The deep veins are normally compressible, and free of intraluminal thrombus. Color and pu lse Doppler demonstrate normal phasic intravascular flow. There is normal augmentation response to d istal compression maneuver. Prominent soft tissue edema is seen. IMPRESSION: No deep venous thrombosis of the visualized lower extremities. Reviewed by: Chester Gray MD on 05/08/2023 4:37 PM MARCELL Approved by: Chester rGay MD on 05/08/2023 4:37 PM MARCELL Station ID: [id number]
--- NOTE | 2023-05-08 17:42 | Ultrasound Report ---
PROCEDURE: Duplex Lwr Ext Arterial Bilat INDICATIONS: PVD, BLE EDEMA TECHNIQUE: Color and pulse Doppler interrogation was performed of both lower extremity arterial systems, with im age documentation. COMPARISON: Correlation is made with the accompanying venous examination. FINDINGS: Right lower extremity: Common femoral artery: 137 cm/sec, with biphasic flow. Deep femoral artery: 153 cm/sec, with biphasic flow. Proximal superficial femoral artery: 146 cm/sec, with biphasic flow. Mid superficial femoral artery: 152 cm/sec, with biphasic flow. Distal superficial femoral artery: 115 cm/sec, with monophasic flow. Popliteal artery: 242 cm/sec, with monophasic flow. Posterior tibial artery: 119 cm/sec, with biphasic flow. Anterior tibial artery/dorsalis pedis: 136 cm/sec, with biphasic flow. Chandra-scale imaging description: Soft tissue edema is seen. Left lower extremity: Common femoral artery: 177 cm/sec, with biphasic flow. Deep femoral artery: 159 cm/sec, with biphasic flow. Proximal superficial femoral artery: 149 cm/sec, with biphasic flow. Mid superficial femoral artery: 220 cm/sec, with monophasic flow. Distal superficial femoral artery: 220 cm/sec, with monophasic flow. Popliteal artery: 199 cm/sec, with biphasic flow. Posterior tibial artery: 91 cm/sec, with monophasic flow. Anterior tibial artery/dorsalis pedis: 72 cm/sec, with biphasic flow. Chandra-scale imaging description: Soft tissue edema is seen. IMPRESSION: Areas of greater than 50% stenosis can be seen by velocity criteria involving the right popliteal art hugo, as well as the left mid superficial femoral artery, the left distal superficial femoral artery, and the left popliteal artery. Please consider follow-up MR angiogram versus CT angiogram for further evaluation (assuming that ther e is no contraindication). Soft tissue edema can be seen. Reviewed by: Chester Gary MD on 05/08/2023 4:40 PM MARCELL Approved by: Chester Gray MD on 05/08/2023 4:40 PM MARCELL Station ID: [id number]
== END 2023-05-08 12:47 | disposition home or self-care (01) ==
LOC: DI 12:46
PROVIDERS: ATTEND Physician Assistant
DX: Z72.0 Tobacco use (principal); I70.203 Unspecified atherosclerosis of native arteries of extremities, bilateral legs; R60.0 Localized edema
CPT/HCPCS: 93925; 93970

== ENCOUNTER 2023-06-09 14:00 | Outpatient (CLI) | payer MEDICAID ==
[2023-06-09] MEDS ORDERED: iohexoL-300 100 ML VIAL IVP ONE (15:06)
--- NOTE | 2023-06-10 09:04 | CT Report ---
PROCEDURE: ANGIO ABD RUNOFF W/WO - B/L INDICATIONS: PVD, LOWER EXTREMITY EDEMA CONTRAST: 125ml Omni 300 TECHNIQUE: After the administration of intravenous contrast, a CT scan of the abdomen, pelvis and lower extremit ies (to the feet) was performed. Images were recorded and evaluated at appropriate window settings. R eformats: coronal and sagittal. For radiation dose reduction, the following was used: automated expos ure control, adjustment of mA and/or kV according to patient size. COMPARISON: None. FINDINGS: Image quality: Excellent. Abdominal aorta: No evidence of acute aortic syndrome. No significant aneurysm. No significant ather osclerotic disease. Right lower extremity: Common iliac artery: No significant atherosclerotic disease. External iliac artery: No significant atherosclerotic disease. Common femoral artery: No significant atherosclerotic disease. Superficial femoral artery: No significant atherosclerotic disease. Popliteal artery: No significant atherosclerotic disease. Anterior tibial artery: No significant atherosclerotic disease. Peroneal artery: No significant atherosclerotic disease. Posterior tibial artery: No significant atherosclerotic disease. Three-vessel runoff Left lower extremity: Right lower extremity: Common iliac artery: No significant atherosclerotic disease. External iliac artery: No significant atherosclerotic disease. Common femoral artery: No significant atherosclerotic disease. Superficial femoral artery: No significant atherosclerotic disease. Popliteal artery: No significant atherosclerotic disease. Anterior tibial artery: No significant atherosclerotic disease. Peroneal artery: No significant atherosclerotic disease. Posterior tibial artery: No significant atherosclerotic disease.. Three-vessel runoff. OTHER: Lung bases and heart: Unremarkable. Liver: No solid mass. Gallbladder and biliary tree: Unremarkable Spleen: No splenomegaly. Pancreas: No pancreatic ductal dilation. Adrenals: No adrenal nodule. Kidneys and ureters: No hydronephrosis. No renal cystic lesion which requires follow up. No solid mas s. Bowel and peritoneum: No bowel distension. No pathologic free fluid. Lymph nodes: No central or retroperitoneal adenopathy. Vessels: No infrarenal aortic aneurysm. Reproductive organs: Unremarkable. Bladder: No abnormal wall thickening, accounting for underdistention. Pelvic lymph nodes: No pelvic adenopathy by size criteria. Bones: Degenerative changes in the lumbar spine. Both knees have advanced osteoarthritis with medial joint space narrowing and bilateral joint effusions. Other: No significant ventral or inguinal hernia. IMPRESSION: 1. Normal CT angiogram and runoff with no significant atherosclerotic disease and a three-vessel runo ff bilaterally. Specifically there is no stenosis or atherosclerotic disease identified in the right popliteal artery in the region of suspected stenosis from prior ultrasound. 2. Osteoarthritis of both knees with joint effusions. Reviewed by: Piotr Mckeon on 06/10/2023 9:03 AM TAL Approved by: Piotr Mckeon on 06/10/2023 9:03 AM PDT Station ID: [id number]
== END 2023-06-09 14:01 | disposition home or self-care (01) ==
LOC: DI 14:00
PROVIDERS: ATTEND Physician Assistant
DX: I73.9 Peripheral vascular disease, unspecified (principal); R60.0 Localized edema; F17.201 Nicotine dependence, unspecified, in remission; M17.0 Bilateral primary osteoarthritis of knee
CPT/HCPCS: 75635; Q9967

== ENCOUNTER 2023-08-13 09:29 | Outpatient (CLI) | payer MEDICAID ==
[2023-08-13 18:47] LABS: INR 1.1 (0.8-1.2); PT - PROTHROMBIN TIME 11.7 secs (9.9-12.6)
[2023-08-13 18:50] LABS: ALBUMIN 4.4 g/dL (3.2-5.5); ALBUMIN/GLOBULIN RATIO 1.4 (1.0-2.2); BILIRUBIN,TOTAL 0.5 mg/dL (0.2-1.0); CALCIUM 9.6 mg/dL (8.5-10.3); POTASSIUM 4.7 mmol/L (3.5-4.5); TOTAL PROTEIN 7.6 g/dL (6.4-8.9)
[2023-08-13 19:47] LABS: RHEUMATOID FACTOR NEGATIVE (Negative)
[2023-08-17 16:08] LABS: ANTINUCLEAR ANTIBODIES IFA Negative (.)
[2023-08-17 19:07] LABS: CYCLIC CITRULLINATED PEP IGG/A 0 units (0-19)
== END 2023-08-13 09:30 | disposition home or self-care (01) ==
LOC: LAB.N 09:29
PROVIDERS: ATTEND Physician Assistant
DX: R60.0 Localized edema (principal); M25.40 Effusion, unspecified joint; M25.50 Pain in unspecified joint
CPT/HCPCS: 36415; 80053; 81001; 83880; 85610; 86038; 86200; 86430; 87086

== ENCOUNTER 2023-09-28 09:21 | Outpatient (CLI) | payer MEDICAID | END 2023-09-28 09:22 | disposition home or self-care (01) | LOC: DI 09:21 | PROVIDERS: ATTEND Physician Assistant | DX: R01.1 Cardiac murmur, unspecified (principal); R60.0 Localized edema; I77.810 Thoracic aortic ectasia | CPT/HCPCS: 93307 ==